=== PATIENT | female | born 1945 | race Caucasian/White ===

== ENCOUNTER → 2021-07-31 | Emergency (ER) | payer MEDICAID, MEDICARE ==
[~2021-07-31] VITALS: Ht 167.6 cm; Wt 48.1 kg
--- NOTE | 2021-07-31 19:35 | NUR ---
BIBPA FROM SNF FOR C/O R LOWER BACK PAIN S/P FOUND ON THE FLOOR 4 DAYS AGO + HITTING THE HEAD - KO. PLACED COMFORTABLY IN BED. VITALS CHECKED
--- NOTE | 2021-07-31 20:24 | NUR ---
XRAY OF PELVIS DONE AT BEDSIDE
--- NOTE | 2021-07-31 21:49 | NUR ---
[facility] ETA 20 MINUTES
--- NOTE | 2021-07-31 21:52 | NUR ---
REPORT GIVEN TO NEWTON FROM [facility] FOR GARO
--- NOTE | 2021-07-31 22:16 | NUR ---
[facility] ARRIVED FOR PICKUP
[2021-07-31 22:18] VITALS: BP 105/60
== END ==
LOC: ER 19:17
DX: S00.11XA Contusion of right eyelid and periocular area, initial encounter (principal); S09.90XA Unspecified injury of head, initial encounter; M25.551 Pain in right hip; I12.0 Hypertensive chronic kidney disease with stage 5 chronic kidney disease or end stage renal disease; N18.6 End stage renal disease; Z99.2 Dependence on renal dialysis; F41.9 Anxiety disorder, unspecified; F32.A Depression, unspecified; Z86.73 Personal history of transient ischemic attack (TIA), and cerebral infarction without residual deficits; Z88.2 Allergy status to sulfonamides; Z88.1 Allergy status to other antibiotic agents; Z88.8 Allergy status to other drugs, medicaments and biological substances; Z88.0 Allergy status to penicillin; Z91.010 Allergy to peanuts; W18.39XA Other fall on same level, initial encounter; Y93.89 Activity, other specified; Y92.89 Other specified places as the place of occurrence of the external cause; Y99.8 Other external cause status
CPT/HCPCS: 70450-TC; 72125-TC; 72170-TC

== ENCOUNTER 2022-01-24 15:58 | Inpatient (IN) | payer MEDICARE, OTHER ==
[~2022-01-24] VITALS: Ht 172.7 cm; Wt 52.6 kg
--- NOTE | 2022-01-24 16:05 | NUR ---
Receive pt 76 yrs female came by se[facility]our FROM HOME c/o N/V FOR 2 HR AWAKE AND ALERT fallow command
--- NOTE | 2022-01-24 16:15 | NUR ---
SEEN BY INSERTED ANGO CATHETER G 20 RT AC BLOOD DROW SENT TO LAB
[2022-01-24] MEDS ORDERED: IV NS 0.9% 500 ML BAG IV ONE (16:30)
[2022-01-24 16:32] LABS: BASOPHILS # (AUTO) 0.1 K/uL (0.0-0.2); BASOPHILS % (AUTO) 0.6 % (0.0-2.0); EOSINOPHILS % (AUTO) 0.2 % (0.0-6.0); HEMATOCRIT 40 % (33-45); HEMOGLOBIN 13.2 g/dL (11.5-14.8); LYMPHOCYTES # (AUTO) 0.3 K/uL (0.8-4.8); LYMPHOCYTES % (AUTO) 2.7 % (20.0-44.0); MEAN CORPUSCULAR HGB CONC 33 g/dl (31.0-36.0); MEAN CORPUSCULAR VOLUME 98 fL (82-100); MONOCYTES # (AUTO) 0.7 K/uL (0.1-1.30); MONOCYTES % (AUTO) 5.5 % (2.0-12.0); NEUTROPHILS # (AUTO) 11.4 K/uL (1.8-8.9); PLATELET COUNT (AUTO) 274 K/uL (150-450); RED BLOOD CELL COUNT(AUTO) 4.07 MIL/uL (4.0-5.2); WHITE BLOOD COUNT (AUTO) 12.5 K/uL (4.3-11.0)
[2022-01-24 16:58] LABS: CALCIUM, SERUM 9.5 mg/dL (8.5-10.1); CARBON DIOXIDE 26 mmol/L (21-32); CHLORIDE 95 mmol/L (98-107); CREATININE 3.8 mg/dL (0.6-1.3); GLUCOSE 198 mg/dL (74-106); POTASSIUM 3.9 mmol/L (3.5-5.1); SODIUM SERUM 135 mmol/L (136-145); UREA NITROGEN, BLOOD 26 mg/dL (7-18)
--- NOTE | 2022-01-24 17:00 | NUR ---
TO CT SCAN OF ABDOMIN
[2022-01-24 17:04] LABS: ALANINE AMINOTRANSFERASE 16 U/L (12-78); ALBUMIN 3.4 g/dL (3.4-5.0); ALKALINE PHOSPHATASE 114 U/L (46-116); ASPARTATE AMINOTRANSFERASE 18 U/L (15-37); BILIRUBIN,DIRECT 0.1 mg/dL (0.0-0.2); BILIRUBIN,TOTAL 0.5 mg/dL (0.2-1.0); LIPASE 225 U/L (73-393); TOTAL PROTEIN, SERUM 8.1 g/dL (6.4-8.2)
[2022-01-24] MEDS ORDERED: ACET325T53 PO (17:33)
[2022-01-24] MEDS ORDERED: FOLI0.8T23 PO (17:33)
[2022-01-24] MEDS ORDERED: DOCU-141 PO (17:33)
[2022-01-24] MEDS ORDERED: MELA5TAB PO (17:33)
[2022-01-24] MEDS ORDERED: CYAN-51 PO (17:33)
[2022-01-24] MEDS ORDERED: SERT100T12 PO (17:33)
[2022-01-24] MEDS ORDERED: BISA10SU11 RC (17:33)
[2022-01-24] MEDS ORDERED: MIDO5TAB4 PO (17:33)
[2022-01-24] MEDS ORDERED: PANT40TA49 PO (17:33)
[2022-01-24] MEDS ORDERED: VIT1CAPS44 PO (17:33)
[2022-01-24] MEDS ORDERED: CETI5TAB6 PO (17:33)
[2022-01-24] MEDS ORDERED: ASCO500C17 PO (17:33)
[2022-01-24] MEDS ORDERED: OXYC-592 PO (17:33)
--- NOTE | 2022-01-24 18:21 | NUR ---
COVID SWAB SENT TO LAB
--- NOTE | 2022-01-24 18:57 | NUR ---
BED 118-1
[2022-01-24] MEDS ORDERED: MAGNESIUM HYDROXIDE 30 ML UDC PO PRN (19:00)
[2022-01-24] MEDS ORDERED: ZOLPIDEM TARTRATE 5 MG TABLET PO PRN (19:00)
[2022-01-24] MEDS ORDERED: MORPHINE SULFATE INJ 2 MG/ML DISP.SYRIN IV PRN (19:00)
[2022-01-24] MEDS ORDERED: MAG HYDROX/AL HYDROX/SIMETH 30 ML UDC PO PRN (19:00)
[2022-01-24] MEDS ORDERED: Z GUARD REMEDY 4 OZ OINT TP PRN (19:00)
--- NOTE | 2022-01-24 19:26 | NUR ---
HAND OFF JC HOPE
--- NOTE | 2022-01-24 20:47 | NUR ---
REPORT GIVEN TO WILMAN
--- NOTE | 2022-01-24 21:32 | NUR ---
PT TRANSPORTED TO ROOM 118 IN STABLE CONDITION.
--- NOTE | 2022-01-24 21:40 | NUR ---
RN NOTES ADMITTED A 76 Y/O FEMALE PATIENT FROM ER. PATIENT IS A/O X4 ABLE TO MAKE NEEDS KNOWN. VITAL SIGNS TAKEN AND RECORDED AFEBRILE. NO SOB NO DISTRESS NOTED AT THIS TIME. SAFELY TRANSFER PATIENT TO BED. BODY ASSESSMENT DONE. BELONGINGS ACCOUNTED AND CHECKED. PATIENT WITH IV ACCESS AT R AC #20 PATENT FLUSHES WELL. WITH R CHEST WALL PERMA CATHETER INTACT NO BLEEDING NOTED. WITH L LOWER ABDOMEN PERITONEAL CATHETER INTACT. ALL SAFETY MEASURES IN PLACE AT ALL TIMES.HOB ELEVATED. CALL LIGHT WITHIN REACH BED ON LOWEST POSITION AND LOCKED. WILL CLOSELY MONITOR THE PATIENT
[2022-01-24 21:50] VITALS: BP 118/66
[2022-01-24] MEDS: IV D5/0.45 NACL 1,000 ML IV PRN (22:50)
[2022-01-25] VITALS: BP 118/66
[2022-01-25 06:07] LABS: BASOPHILS % (AUTO) 0.3 % (0.0-2.0); EOSINOPHILS % (AUTO) 0.1 % (0.0-6.0); HEMATOCRIT 33 % (33-45); HEMOGLOBIN 10.9 g/dL (11.5-14.8); LYMPHOCYTES # (AUTO) 1.2 K/uL (0.8-4.8); LYMPHOCYTES % (AUTO) 11.9 % (20.0-44.0); MEAN CORPUSCULAR HGB CONC 33 g/dl (31.0-36.0); MEAN CORPUSCULAR VOLUME 98 fL (82-100); MONOCYTES # (AUTO) 0.7 K/uL (0.1-1.30); MONOCYTES % (AUTO) 6.5 % (2.0-12.0); NEUTROPHILS # (AUTO) 8.4 K/uL (1.8-8.9); NEUTROPHILS % (AUTO) 81.2 % (43.0-81.0); PLATELET COUNT (AUTO) 255 K/uL (150-450); RED BLOOD CELL COUNT(AUTO) 3.41 MIL/uL (4.0-5.2); WHITE BLOOD COUNT (AUTO) 10.3 K/uL (4.3-11.0)
[2022-01-25] MEDS: IV D5/0.45 NACL 1,000 ML IV PRN (06:21)
[2022-01-25 06:22] LABS: CALCIUM, SERUM 8.9 mg/dL (8.5-10.1); CARBON DIOXIDE 25 mmol/L (21-32); CHLORIDE 95 mmol/L (98-107); CREATININE 4.8 mg/dL (0.6-1.3); GLUCOSE 117 mg/dL (74-106); MAGNESIUM 2.2 mg/dL (1.8-2.4); PHOSPHORUS 4.6 mg/dL (2.5-4.9); POTASSIUM 4.5 mmol/L (3.5-5.1); SODIUM SERUM 134 mmol/L (136-145); UREA NITROGEN, BLOOD 44 mg/dL (7-18)
--- NOTE | 2022-01-25 06:47 | NUR ---
RN NOTES PATIENT REMAINS STABLE NO SIGNIFICANT CAHNGES. NO EPISODE OF VOMITING DURING THE SHIFT. ALL DUE MEDS GIVEN. IV ACCESS ON R AC PATENT RUNNING D5 /2 NS @125CC/HR. ALL SAFETY MEASURES IN PLACE AT ALL TIMES. HOB ELEVATED. CALL LIGHT WITHIN REACH. BED ON LOWEST POSITION AND LOCKED. WILL ENDORSED TO MORNING SHIFT FOR GARO
--- NOTE | 2022-01-25 07:14 | NUR ---
RN OPENING NOTES: RECEIVED PATIENT IN BED, AWAKE, ALERT ORIENTED X 4. PATIENT HAS NO RESPIRATORY DISTRESS NOTED. ON RA WITH OXYGEN SATURATION OF 95%. HAS IV ACCESS ON RIGHT AC RUNNING WITH D5 1/2 NS @ 125ML/HR, PATENT, NO S/S INFILTRATION. PATIENT HAS PERMACATH ON RIGHT CHEST WALL, DRESSING DRY AND INTACT, NO BLEEDING NOTED. ALSO NOTED TO HAVE AN INTACT PERITONEAL CATH PORT ON LEFT LOWER ABDOMEN, DRESSING DRY AND INTACT. ASSISTED PATIENT TO THE BR, HAD BM X1. PLACED BACK IN BED. INSTRUCTED TO ALWAYS CALL FOR ASSISTANCE WHEN NEEDED. PATIENT VERBALIZED UNDERSTANDING. SR UP X 2, BED LOCKED AND IN LOWEST POSITION. CALL LIGHT WITHIN REACH. WILL CONTINUE TO MONITOR PATIENT THROUGHOUT SHIFT.
[2022-01-25 08:00] VITALS: BP 125/73
[2022-01-25] MEDS ORDERED: PANTOPRAZOLE 40 MG VIAL IV SCH (09:00)
[2022-01-25] MEDS: cetrizine 10 MG TABLET PO SCH (12:22)
[2022-01-25] MEDS ORDERED: IV D5/0.45 NACL 1,000 ML IV ONE ×2 (12:30)
[2022-01-25] MEDS ORDERED: BISACODYL SUPP (10 MG) 10 MG/SUPP.RECT SUPP.RECT RC PRN (15:00)
[2022-01-25] MEDS ORDERED: CETIRIZINE HCL PO PRN (15:00)
[2022-01-25] MEDS ORDERED: OXYCODONE HCL 5 MG PO PRN (15:00)
[2022-01-25] MEDS ORDERED: Medication Not On Formulary EA (Melatonin 6 MG) PO PRN (15:00)
[2022-01-25] MEDS ORDERED: oxyCODONE IR immediate release 5 MG PO PRN (15:00)
[2022-01-25] MEDS: ACETAMINOPHEN 325 MG TABLET PO PRN (15:52)
[2022-01-25 16:00] VITALS: BP 169/87
[2022-01-25] MEDS: MULTIVITAMIN/LUTEIN/MINERALS 1 TAB PO SCH ×2 (16:01→16:11)
[2022-01-25] MEDS: MIDODRINE HCL (5MG) 5 MG TABLET PO SCH ×2 (16:11→17:00)
[2022-01-25] MEDS: hydrALAZINE HCL 25 MG TABLET PO PRN (18:01)
--- NOTE | 2022-01-25 18:50 | NUR ---
RN CLOSING NOTES: PATIENT IN BED, AWAKE, ALERT AND ORIENTED X 4. NO SOB. ON RA WITH OXYGEN SATURATION OD 99%. NO SOD NOTED. IV FLUID OF D5 1/2 NS @ 100 ML/HR ON RIGHT AC, NO S/S INFILTRATION. PATIENT WAS STARTED ON CLEAR LIQUID DIET FOR DINNER. NO NAUSEA OR VOMITING NOTED DURING THE ENTIRE SHIFT. BED LOCKED AND IN LOWEST POSITION. CALL LIGHT WITHIN REACH. WILL ENDORSE TO NEXT SHIFT NURSE FOR CONTINUITY OF CARE.
--- NOTE | 2022-01-25 19:10 | NUR ---
RN NOTES RECEIVED REPORT FROM MORNING. PATIENT IS A/O X4 ABLE TO MAKE NEEDS KNOWN. VITAL SIGNS TAKEN AND RECORDED AFEBRILE. NO SOB NO DISTRESS NOTED AT THIS TIME. PATIENT WITH IV ACCESS AT R AC #20 PATENT FLUSHES WELL ON CONTINUOS IVF D5 1/2 NS @ 100 CC/HR. WITH R CHEST WALL PERMA CATHETER INTACT NO BLEEDING NOTED. WITH L LOWER ABDOMEN PERITONEAL CATHETER INTACT. ALL SAFETY MEASURES IN PLACE AT ALL TIMES.HOB ELEVATED. CALL LIGHT WITHIN REACH BED ON LOWEST POSITION AND LOCKED. WILL CLOSELY MONITOR THE PATIENT
[2022-01-26 00:51] VITALS: BP 149/74
--- NOTE | 2022-01-26 06:45 | NUR ---
RN NOTES PATIENT REMAINS STABLE NO SIGNIFICANT CHANGES. NO EPISODE OF VOMITING DURING THE SHIFT. ALL DUE MEDS GIVEN. IV ACCESS ON R AC PATENT. ALL SAFETY MEASURES IN PLACE AT ALL TIMES.PATIENT ON CLEAR LIQUID DIET ORDERED. HOB ELEVATED. CALL LIGHT WITHIN REACH. BED ON LOWEST POSITION AND LOCKED. WILL ENDORSED TO MORNING SHIFT FOR GARO
[2022-01-26 06:51] LABS: BASOPHILS % (AUTO) 0.3 % (0.0-2.0); EOSINOPHILS % (AUTO) 1.7 % (0.0-6.0); HEMATOCRIT 32 % (33-45); HEMOGLOBIN 10.7 g/dL (11.5-14.8); LYMPHOCYTES % (AUTO) 11.5 % (20.0-44.0); MEAN CORPUSCULAR HGB CONC 34 g/dl (31.0-36.0); MEAN CORPUSCULAR VOLUME 97 fL (82-100); MONOCYTES # (AUTO) 0.6 K/uL (0.1-1.30); MONOCYTES % (AUTO) 6.9 % (2.0-12.0); NEUTROPHILS # (AUTO) 7.2 K/uL (1.8-8.9); NEUTROPHILS % (AUTO) 79.6 % (43.0-81.0); PLATELET COUNT (AUTO) 246 K/uL (150-450); RED BLOOD CELL COUNT(AUTO) 3.25 MIL/uL (4.0-5.2)
[2022-01-26 07:10] LABS: CALCIUM, SERUM 9.1 mg/dL (8.5-10.1); CARBON DIOXIDE 23 mmol/L (21-32); CHLORIDE 95 mmol/L (98-107); CREATININE 5.8 mg/dL (0.6-1.3); GLUCOSE 85 mg/dL (74-106); POTASSIUM 4.4 mmol/L (3.5-5.1); SODIUM SERUM 132 mmol/L (136-145); UREA NITROGEN, BLOOD 50 mg/dL (7-18)
[2022-01-26 07:24] LABS: MAGNESIUM 1.8 mg/dL (1.8-2.4)
--- NOTE | 2022-01-26 07:30 | NUR ---
RN/NOTE REPORT RECEIVED FROM NIGHT RN. PATIENT A&OX4 AWAKE AND LAYING ON THE BED. ALL VSS. PATIENT SATTING AT 98% ON ROOM AIR. SKIN INTACT. DIET CLEAR LIQUID. IV RAC SL. PATIENT IS DUE TO HAVE HD DONE TODAY. WILL CONTINUE TO MONITOR.
[2022-01-26 08:00] VITALS: BP 132/72
[2022-01-26] MEDS: MULTIVITAMIN/LUTEIN/MINERALS 1 TAB PO SCH ×2 (08:36→17:44)
[2022-01-26] MEDS: CYANOCOBALAMIN 500 MCG TABLET PO SCH (08:36)
[2022-01-26] MEDS: VIT B CMPLX 3/FA/VIT C/BIOTIN 1 TAB TABLET PO SCH (08:36)
[2022-01-26] MEDS: DOCUSATE SODIUM 100 MG CAPSULE PO SCH (08:36)
[2022-01-26] MEDS: PANTOPRAZOLE 40 MG TABLET.DR PO SCH (08:36)
[2022-01-26] MEDS: ASCORBIC ACID 500 MG TABLET PO SCH (08:37)
[2022-01-26] MEDS: cetrizine 10 MG TABLET PO SCH (08:37)
[2022-01-26] MEDS: MIDODRINE HCL (5MG) 5 MG TABLET PO SCH ×4 (08:38→17:00)
[2022-01-26] MEDS: SERTRALINE HCL 50 MG TABLET PO SCH (08:38)
[2022-01-26] MEDS ORDERED: SERTRALINE HCL PO SCH (09:00)
[2022-01-26] MEDS ORDERED: ASCORBIC ACID 500 MG PO SCH (09:00)
[2022-01-26] MEDS: ONDANSETRON HCL/PF 4 MG/2 ML VIAL IVP PRN (09:53)
[2022-01-26 16:00] VITALS: BP 171/95
--- NOTE | 2022-01-26 17:33 | NUR ---
RN/NOTE MIDODRIN HELD DUE TO HIGH BLOOD PRESSURE 171/95.
--- NOTE | 2022-01-26 18:56 | NUR ---
RN/NOTE PATIENT IS STABLE NO SIGNS OF DISTRESS. ALL CARE AND QUESTIONS ENDORSED TO LINOLEUM INSTALLER RN.
--- NOTE | 2022-01-26 19:10 | NUR ---
RN NOTES RECEIVED REPORT FROM MORNING. PATIENT IS A/O X4 ABLE TO MAKE NEEDS KNOWN. VITAL SIGNS TAKEN AND RECORDED AFEBRILE. NO SOB NO DISTRESS NOTED AT THIS TIME. PATIENT WITH IV ACCESS AT R AC #20 PATENT FLUSHES WELL. WITH R CHEST WALL PERMA CATHETER INTACT NO BLEEDING NOTED. WITH L LOWER ABDOMEN PERITONEAL CATHETER INTACT. ALL SAFETY MEASURES IN PLACE AT ALL TIMES.HOB ELEVATED. CALL LIGHT WITHIN REACH BED ON LOWEST POSITION AND LOCKED. WILL CLOSELY MONITOR THE PATIENT
--- NOTE | 2022-01-26 21:10 | NUR ---
RN NOTES CALLED [facility] REGARDING PATIENT DIALYSIS SCHEDULE. SPOKE TO JARRETT HOPE AND SAID WILL SCHEDULE PATIENT IN A.M FOR DIALYSIS THEY WILL INFORMED DR CHRISTIAN.
[2022-01-26] MEDS: cetrizine 10 MG TABLET PO PRN (21:47)
[2022-01-27] VITALS: BP 158/86
[2022-01-27 07:11] LABS: CARBON DIOXIDE 22 mmol/L (21-32); CHLORIDE 95 mmol/L (98-107); CREATININE 7.2 mg/dL (0.6-1.3); GLUCOSE 82 mg/dL (74-106); PHOSPHORUS 6.2 mg/dL (2.5-4.9); POTASSIUM 4.9 mmol/L (3.5-5.1); SODIUM SERUM 131 mmol/L (136-145); UREA NITROGEN, BLOOD 61 mg/dL (7-18)
[2022-01-27] MEDS: PANTOPRAZOLE 40 MG TABLET.DR PO SCH ×2 (07:30→09:18)
--- NOTE | 2022-01-27 07:30 | NUR ---
RN/NOTE REPORT RECEIVED FROM NIGHT RN. PATIENT A&OX4 AWAKE AND LAYING ON THE BED. ALL VSS. PATIENT SATTING AT 98% ON ROOM AIR. SKIN INTACT. DIET CLEAR LIQUID. IV RAC SL. PATIENT IS DUE TO HAVE HD DONE TODAY IT WAS NOT DONE YESTERDAY. WILL CONTINUE TO MONITOR.
[2022-01-27 07:32] LABS: BASOPHILS # (AUTO) 0.1 K/uL (0.0-0.2); BASOPHILS % (AUTO) 0.8 % (0.0-2.0); EOSINOPHILS % (AUTO) 2.8 % (0.0-6.0); HEMATOCRIT 32 % (33-45); HEMOGLOBIN 10.7 g/dL (11.5-14.8); LYMPHOCYTES # (AUTO) 0.8 K/uL (0.8-4.8); LYMPHOCYTES % (AUTO) 12.3 % (20.0-44.0); MEAN CORPUSCULAR HGB CONC 33 g/dl (31.0-36.0); MEAN CORPUSCULAR VOLUME 98 fL (82-100); MONOCYTES # (AUTO) 0.6 K/uL (0.1-1.30); MONOCYTES % (AUTO) 8.9 % (2.0-12.0); NEUTROPHILS # (AUTO) 5.1 K/uL (1.8-8.9); NEUTROPHILS % (AUTO) 75.2 % (43.0-81.0); PLATELET COUNT (AUTO) 249 K/uL (150-450); RED BLOOD CELL COUNT(AUTO) 3.29 MIL/uL (4.0-5.2); WHITE BLOOD COUNT (AUTO) 6.8 K/uL (4.3-11.0)
[2022-01-27] MEDS: CYANOCOBALAMIN 500 MCG TABLET PO SCH ×2 (09:00→09:18)
[2022-01-27] MEDS: cetrizine 10 MG TABLET PO SCH ×2 (09:00→09:20)
[2022-01-27] MEDS: MULTIVITAMIN/LUTEIN/MINERALS 1 TAB PO SCH ×3 (09:00→17:00)
[2022-01-27] MEDS: SERTRALINE HCL 50 MG TABLET PO SCH ×2 (09:00→09:17)
[2022-01-27] MEDS: ASCORBIC ACID 500 MG TABLET PO SCH ×2 (09:00→09:18)
[2022-01-27] MEDS: VIT B CMPLX 3/FA/VIT C/BIOTIN 1 TAB TABLET PO SCH ×2 (09:00→09:18)
[2022-01-27] MEDS: MIDODRINE HCL (5MG) 5 MG TABLET PO SCH ×4 (09:00→17:00)
[2022-01-27] MEDS: DOCUSATE SODIUM 100 MG CAPSULE PO SCH ×2 (09:00→09:18)
--- NOTE | 2022-01-27 09:00 | NUR ---
RN/NOTE PATIENT REFUSED ALL MORNING MEDICATION AND LUNCH MEDICATION. PATIENT STATED THAT IT ALL MAKES HER SICK. PATIENT WAS EDUCATED ABOUT THE IMPORTANCE OF MEDICATION. PATIENT STILL DID NOT WANT TO TAKE THE MEDICATION. ALL MEDICATION WAS WASTED.
[2022-01-27] MEDS: ONDANSETRON HCL/PF 4 MG/2 ML VIAL IVP PRN (09:19)
[2022-01-27 10:00] VITALS: BP 164/91
[2022-01-27 16:00] VITALS: BP 173/100
--- NOTE | 2022-01-27 16:20 | NUR ---
RN/NOTE PATIENT WAS OFFERED MEDICATION FOR HER ELEVATED BLOOD PRESSURE AND REFUSED. PATIENT CURRENTLY HAVE DIALYSIS.
[2022-01-27] MEDS: hydrALAZINE HCL 25 MG TABLET PO PRN ×2 (17:39→23:40)
[2022-01-27] MEDS: ACETAMINOPHEN 325 MG TABLET PO PRN (18:38)
--- NOTE | 2022-01-27 18:39 | NUR ---
RN/NOTE PATIENT IS STABLE NO SIGNS OF DISTRESS. ALL CARE AND QUESTIONS ENDORSED TO CONTROL SPECIALIST RN.
[2022-01-27 20:00] VITALS: BP 170/99
[2022-01-27] MEDS: cetrizine 10 MG TABLET PO PRN (21:58)
--- NOTE | 2022-01-27 21:58 | NUR ---
RN NOTE PT REPORTS OF HAVING ITCHING AND REQUESTS FOR CETRIZINE. PT ADMINISTERED 5 MG OF CETRIZINE. WILL MONITOR FOR EFFECTIVENESS.
--- NOTE | 2022-01-27 23:41 | NUR ---
RN NOTE PT NOTED TO HAVE BP OF 170/99. PT ADMINISTERED HYDRALAZINE 25 MG. WILL MONITOR FOR EFFECTIVENESS.
--- NOTE | 2022-01-27 23:44 | NUR ---
RN NOTE PT NOTED TO HAVE BP OF 170/99; PT ADMINISTERED HYDRALAZINE 25 MG. WILL RETAKE BP IN 30 MINS.
--- NOTE | 2022-01-28 00:17 | NUR ---
RN NOTE BP RECHECKED 148/87
--- NOTE | 2022-01-28 00:18 | NUR ---
MS RN OPENING NOTE PT RECEIVED IN BED, AWAKE, A&O X4, CALM, COOPERATIVE. ON RA WITH CURRENT O2SAT OF 95%; NO S/S OF RESP DISTRESS, NO SOB OR COUGH, NON-LABORED AND EQUAL BREATHING. VOICE NOTED TO BE RASPY. BP ELEVATED; ALL OTHER VS ARE STABLE; WILL CONTINUE TO MONITOR NEEDED. PT IS AMBULATORY WITH USE OF WALKER; NOTED TO HAVE STEADY GAIT. IV ACCESS ON RAC 20G INTACT AND PATENT, FLUSHES EASILY WITH NO RESISTANCE; NO MEDS/FLUIDS INFUSING THROUGH IT. BED IN LOWEST POSITIN, SANDEEP LIGHT WITHIN REACH, SIDE RAILS UP X2. WILL CONTINUE TO MONITOR THROUGHOUT THE NIGHT.
[2022-01-28 04:00] VITALS: BP 151/80
[2022-01-28 07:26] LABS: BASOPHILS % (AUTO) 0.8 % (0.0-2.0); EOSINOPHILS % (AUTO) 2.7 % (0.0-6.0); HEMATOCRIT 33 % (33-45); LYMPHOCYTES # (AUTO) 1.1 K/uL (0.8-4.8); LYMPHOCYTES % (AUTO) 20.1 % (20.0-44.0); MEAN CORPUSCULAR HGB CONC 33 g/dl (31.0-36.0); MEAN CORPUSCULAR VOLUME 97 fL (82-100); MONOCYTES # (AUTO) 0.5 K/uL (0.1-1.30); MONOCYTES % (AUTO) 8.8 % (2.0-12.0); NEUTROPHILS # (AUTO) 3.7 K/uL (1.8-8.9); NEUTROPHILS % (AUTO) 67.6 % (43.0-81.0); PLATELET COUNT (AUTO) 231 K/uL (150-450); RED BLOOD CELL COUNT(AUTO) 3.38 MIL/uL (4.0-5.2); WHITE BLOOD COUNT (AUTO) 5.5 K/uL (4.3-11.0)
--- NOTE | 2022-01-28 07:30 | NUR ---
RN OPENING NOTE RECEIVED PATIENT IN BED, AWAKE, ALERT/ORIENTED X4, ABLE TO MAKE NEEDS KNOWN. ON RA WITH CURRENT O2SAT OF 95%; BREATHING EVEN AND UNLABORED. NO S/S OF RESPIRATORY DISTRESS, NO SOB OR COUGH. PT IS AMBULATORY WITH USE OF WALKER; NOTED TO HAVE STEADY GAIT. IV ACCESS ON RAC 20G INTACT AND PATENT, FLUSHES EASILY WITH NO RESISTANCE; NO MEDS/FLUIDS INFUSING AT THE TIME. ALL SAFETY MEASURES IN PLACE. BED IN LOWEST LOCKED POSITION, SANDEEP LIGHT WITHIN REACH, SIDE RAILS UP X2. WILL CONTINUE TO MONITOR THROUGHOUT THE SHIFT.
--- NOTE | 2022-01-28 07:39 | NUR ---
MS RN CLOSING NOTE PT REMAINS IN BED, AWAKE, A&O X4, CALM, COOPERATIVE; SLEPT INTERMITTENTLY THROUGHOUT THE NIGHT. CONTINUES TO BE ON RA SATTING IN THE 90S. NO S/S OF RESP DISTRESS, NO SOB OR COUGH, NON-LABORED AND EQUAL BREATHING. VSS THROUGHOUT THE NIGHT; BP WENT DOWN TO NORMAL AFTER GIVING HYDRALAZINE. IV ACCESS ON RAC 20G INTACT AND PATENT, FLUSHES EASILY WITH NO RESISTANCE; NO MEDS/FLUIDS INFUSING THROUGH IT. ALL DUE MEDS ADMINISTERED DURING THE NIGHT. BED IN LOWEST POSITION, CALL LIGHT WITHIN REACH, SIDE RAILS UP X2. WILL ENDORSE TO DAYSHIFT NURSE TO CONTINUE CARE.
[2022-01-28 08:04] LABS: CARBON DIOXIDE 22 mmol/L (21-32); CHLORIDE 98 mmol/L (98-107); CREATININE 4.9 mg/dL (0.6-1.3); GLUCOSE 82 mg/dL (74-106); PHOSPHORUS 5.3 mg/dL (2.5-4.9); POTASSIUM 4.7 mmol/L (3.5-5.1); SODIUM SERUM 131 mmol/L (136-145); UREA NITROGEN, BLOOD 30 mg/dL (7-18)
[2022-01-28] MEDS: ASCORBIC ACID 500 MG TABLET PO SCH (08:17)
[2022-01-28] MEDS: MULTIVITAMIN/LUTEIN/MINERALS 1 TAB PO SCH ×2 (08:17→17:00)
[2022-01-28] MEDS: DOCUSATE SODIUM 100 MG CAPSULE PO SCH (08:17)
[2022-01-28] MEDS: PANTOPRAZOLE 40 MG TABLET.DR PO SCH (08:17)
[2022-01-28] MEDS: VIT B CMPLX 3/FA/VIT C/BIOTIN 1 TAB TABLET PO SCH (08:18)
[2022-01-28] MEDS: CYANOCOBALAMIN 500 MCG TABLET PO SCH (08:18)
[2022-01-28] MEDS: MIDODRINE HCL (5MG) 5 MG TABLET PO SCH ×3 (08:18→17:00)
[2022-01-28] MEDS: SERTRALINE HCL 50 MG TABLET PO SCH (08:18)
[2022-01-28] MEDS: cetrizine 10 MG TABLET PO SCH (08:18)
[2022-01-28 12:00] VITALS: BP 115/63
--- NOTE | 2022-01-28 12:30 | NUR ---
RN NOTE PATIENT WAS OFFERED MIDODRINE MEDICATION, PATIENT REFUSED, CURRENT BP IS 115/63. PATIENT IS CURRENTLY HAVING HEMODIALYSIS.
--- NOTE | 2022-01-28 13:19 | NUR ---
RN NOTE COMPLETED HEMODIALYSIS, TOLERATED WELL HD NURSE REMOVED 1.1L. CURRENT BP IS 118/71, RR-18. BREATHING EVEN AND UNLABORED. NO SOB OR ANY RESPIRATORY DISTRESS NOTED. ALL NEEDS ANTICIPATED.
[2022-01-28 17:00] VITALS: BP 115/65
[2022-01-28] MEDS ORDERED: MUPIROCIN OINT 2% 22 GM TUBE NS SCH (17:00)
--- NOTE | 2022-01-28 18:21 | NUR ---
RN NOTE REPORT GIVEN TO NEWTON HOPE AT [facility] FOR PATIENT DISCHARGE. ATTEMPTED TO CALL DAUGHTER RAMAN FOR UPDATE, NO HAND BOOKBINDER.
[2022-01-28] MEDS: ACETAMINOPHEN 325 MG TABLET PO PRN (19:03)
--- NOTE | 2022-01-28 19:17 | NUR ---
RN NOTE PATIENT DISCHARGED IN STABLE CONDITION. REPORT GIVEN TO NEWTON AT [facility]. PATIENT AWAKE, ALERT/ORIENTED X 4. ON ROOM AIR, TOLERATING WELL. BREATHING EVEN AND UNLABORED. NO SOB OR ANY RESPIRATORY DISTRESS NOTED AT THE TIME. ALL DUE MEDS GIVEN ORDERED. KEPT PATIENT CLEAN DRY AND COMFORTABLE. ALL NEEDS ATTENDED. IV ACCESS REMOVED, NO BLEEDING NOTED. ALL BELONGINGS ACCOUNTED FOR AND GIVEN TO PATIENT. PATIENT LEFT UNIT IN STABLE CONDITION WITH EMT CREW [facility].
== END 2022-01-28 21:41 | DRG 871 ==
LOC: ER 16:11 → TELE1 20:14 → MEDSG1 21:50
PROVIDERS: ADMIT Student in an Organized Health Care Education/Training Program; ATTEND Student in an Organized Health Care Education/Training Program
PROC: 5A1D70Z Performance of Urinary Filtration, Intermittent, Less than 6 Hours Per Day (ICD-10-PCS; principal; 2022-01-27)
DX: A41.9 Sepsis, unspecified organism (principal); N18.6 End stage renal disease; E87.1 Hypo-osmolality and hyponatremia; I12.0 Hypertensive chronic kidney disease with stage 5 chronic kidney disease or end stage renal disease; Q60.0 Renal agenesis, unilateral; A09 Infectious gastroenteritis and colitis, unspecified; Z99.2 Dependence on renal dialysis; Z20.822 Contact with and (suspected) exposure to COVID-19; Z86.73 Personal history of transient ischemic attack (TIA), and cerebral infarction without residual deficits; Z85.810 Personal history of malignant neoplasm of tongue; F41.9 Anxiety disorder, unspecified; F32.A Depression, unspecified; Z88.0 Allergy status to penicillin; Z88.2 Allergy status to sulfonamides; Z88.8 Allergy status to other drugs, medicaments and biological substances; Z88.1 Allergy status to other antibiotic agents; Z91.010 Allergy to peanuts; Z79.899 Other long term (current) drug therapy; D17.71 Benign lipomatous neoplasm of kidney; M89.8X9 Other specified disorders of bone, unspecified site; N28.1 Cyst of kidney, acquired; Z82.49 Family history of ischemic heart disease and other diseases of the circulatory system; C76.2 Malignant neoplasm of abdomen
CPT/HCPCS: 36415; 71045-TC; 74018; 80048-TC; 80076-TC; 83690-TC; 83735-TC; 84100-TC; 84484-TC; 85025-TC; 86706; 87081-TC; 87340; 90935-TC; A6403; C9113; C9803; G0378; J2405; J3490; J7030; J7040